=== PATIENT | female | born 1970 | race Caucasian/White ===

== ENCOUNTER → 2017-03-12 | Outpatient (CLI) | payer OTHER | LOC: FIMAGING 19:50 | PROVIDERS: ATTEND Orthopaedic Surgery Sports Medicine | DX: M50.321 Other cervical disc degeneration at C4-C5 level (principal) ==

== ENCOUNTER → 2017-05-24 | Outpatient (CLI) | payer OTHER | LOC: CIMAGING 14:45 | PROVIDERS: ATTEND Nurse Practitioner | DX: Z12.31 Encounter for screening mammogram for malignant neoplasm of breast (principal) ==

== ENCOUNTER → 2018-05-27 | Outpatient (CLI) | payer OTHER | LOC: CIMAGING 08:14 | PROVIDERS: ATTEND Nurse Practitioner | DX: Z12.31 Encounter for screening mammogram for malignant neoplasm of breast (principal) ==

== ENCOUNTER 2018-07-07 05:41 | Inpatient (IN) | payer OTHER ==
[2018-07-07] MEDS ORDERED: LR 1,000 ML IV ONE (06:04)
[2018-07-07] MEDS ORDERED: MIDAZOLAM 2 MG/2 ML VIAL IVP ONE (06:47)
--- NOTE | 2018-07-07 06:47 | PDANEPAE ---
ANE History of Present Illness JULIO CESAR--open ANE Past Medical History - Cardiovascular History Hx Hypertension: No Hx Arrhythmias: No Hx Chest Pain: No Hx Coronary Artery / Peripheral Vascular Disease: No Hx CHF / Valvular Disease: No Hx Palpitations: No - Pulmonary History Hx COPD: No Hx Asthma/Reactive Airway Disease: No Hx Recent Upper Respiratory Infection: No Hx Oxygen in Use at Home: No Hx Sleep Apnea: No Sleep Apnea Screening Result - Last Documented: Negative - Neurologic History Hx Cerebrovascular Accident: No Hx Seizures: No Hx Dementia: No - Endocrine History Hx Diabetes: No - Renal History Hx Renal Disorders: No - Liver History Hx Hepatic Disorders: No - Neurological & Psychiatric Hx Hx Neurological and Psychiatric Disorders: No Neurological / Psychiatric History Comment: ANXIETY & DEPRESSION - Cancer History Hx Cancer: No - Congenital Disorder History Hx Congenital Disorders: No - GI History Hx Gastrointestinal Disorders: Yes Gastrointestinal History Comment: GERD - Other Health History Other Health History: HX - ANEMIA - IRON INFUSIONS EVERY 9 MOS. MULTIPLE DVT YOLA IN PAST - ELIQUIS. LOW PROTEIN C & S. FACTOR V POS - Chronic Pain History Chronic Pain: No - Surgical History Prior Surgeries: APPENDECTOMY. TONSILLECTOMY. C SECTION X4. BREAST AUGMENTATION ANE Review of Systems Review of Systems: - Exercise capacity METS (RN): 5 METS ANE Patient History - Allergies Allergies/Adverse Reactions: No Known Allergies Allergy (Unverified 07/07/18 06:07) - Home Medications Home Medications: Clonazepam 06/29/18 [Last Taken 07/06/18] Eliquis 06/29/18 [Last Taken 07/05/18] Herbals/Supplements -Info Only 06/29/18 [Last Taken Unknown] Magnesium 06/29/18 [Last Taken 07/06/18] Pantoprazole Sodium 06/29/18 [Last Taken 07/06/18] - NPO status NPO Status: no food or drink >8 hours NPO Since - Liquids (Date): 07/07/18 NPO Since - Liquids (Time): 05:00 NPO Since - Solids (Date): 07/06/18 NPO Since - Solids (Time): 20:00 - Anes Hx Anes Hx: no prior problems - Smoking Hx Smoking Status: Never smoked - Alcohol Use Alcohol Use: None - Family Anes Hx Family Hx Anesthesia Complications: NEG ANE Labs/Vital Signs - Vital Signs Blood Pressure: 118/74 Heart Rate: 82 Respiratory Rate: 16 O2 Sat (%): 95 Height: 161.29 cm Weight: 54.431 kg ANE Physical Exam - Airway Neck exam: FROM Mallampati Score: Class 1 Mouth exam: normal dental/mouth exam - Pulmonary Pulmonary: no respiratory distress, clear to auscultation - Cardiovascular Cardiovascular: regular rate and rhythym, no murmur, rub, or gallop - ASA Status ASA Status: II ANE Anesthesia Plan Anesthesia Plan: general endotracheal anesthesia Regional Anesthesia: single shot NB, TAP block
[2018-07-07] MEDS ORDERED: PROPOFOL/EMULSION 500 MG/50 ML BOTTLE IV ONE (06:53)
[2018-07-07] MEDS ORDERED: PROPOFOL 200 MG/20 ML VIAL ONE ×2 (06:53→09:38)
[2018-07-07] MEDS ORDERED: fentaNYL 100 MCG/2 ML INJ ONE ×2 (06:53→10:44)
[2018-07-07] MEDS ORDERED: ROCURONIUM 100 MG/10 ML VIAL ONE (06:53)
[2018-07-07] MEDS ORDERED: LIDOCAINE 2% 100 MG/5 ML SYR ONE (06:53)
[2018-07-07] MEDS ORDERED: MIDAZOLAM 2 MG/2 ML VIAL ONE (07:06)
[2018-07-07] MEDS ORDERED: ceFAZolin 2 GM/DEXTROSE 100 ML IV ONE ×2 (07:10→15:00)
--- NOTE | 2018-07-07 07:16 | PDGENHP ---
History and Physical - Chief Complaint Menorrhagia, DUB - History of Present Illness 47 yo who I met with in clinic regading long h/o menorrhagia with Paragaurd the Eliquis tx required for h/o DVT with FVL and low Protein C/S. Sees Dr. Seran as CC re anticoag and ongoing issues w anemia. Discussed options for tx and she prefer hysterectomy with BS. EBX negative in clinic. History Information - Allergies/Home Medication List Allergies/Adverse Reactions: No Known Allergies Allergy (Unverified 07/07/18 06:07) Home Medications: Clonazepam 06/29/18 [Last Taken 07/06/18] Eliquis 06/29/18 [Last Taken 07/05/18] Herbals/Supplements -Info Only 06/29/18 [Last Taken Unknown] Magnesium 06/29/18 [Last Taken 07/06/18] Pantoprazole Sodium 06/29/18 [Last Taken 07/06/18] I have personally reviewed and updated: family history, medical history, social history, surgical history Past Medical History: Anxiety, FVL, DVT, GERD - Surgical History Additional surgical history: H/o CS x 4 - Family History Positive for: non-pertinent - Social History Smoking Status: Never smoked Alcohol Use: None Review of Systems Review of Systems: ROS: 10pt was reviewed & negative except for what was stated in HPI & below Physical Exam Physical Exam: Temp Pulse Resp BP Pulse Ox 37 C 82 16 118/74 95 07/07/18 06:14 07/07/18 06:47 07/07/18 06:47 07/07/18 06:47 07/07/18 06:47 Constitutional: no apparent distress, appears nourished, not in pain Eyes: PERRL, anicteric sclera Ears, Nose, Mouth, Throat: moist mucous membranes, hearing normal Cardiovascular: regular rate and rhythym, no murmur, rub, or gallop Respiratory: no respiratory distress Assessment & Plan Assessment: Preop: JULIO CESAR, BS, cysto for menorrhagia. On Eliquis, H/o 4 csections. - Eliquis stopped 36 hrs preop per recs from Dr. Serna. Will resume STEVAN and SCDs immediately and do 40mg Lovenox daily while inpatient and restart Eliquis on discharge. - Routine preop orders, 2g Ancef. - Likely 2-3 night stay. JM
[2018-07-07] MEDS ORDERED: ceFAZolin 1 GM VIAL ONE ×2 (07:30)
[2018-07-07] MEDS ORDERED: ONDANSETRON 4 MG/2 ML VIAL ONE (07:35)
[2018-07-07] MEDS ORDERED: DEXAMETHASONE 4 MG/ML VIAL ONE (07:35)
[2018-07-07] MEDS ORDERED: BUPIVACAINE/EPI 0.25% 30 ML SDV ONE (07:42)
[2018-07-07] MEDS ORDERED: METHYLENE BLUE 0.5% 50 MG/10 ML AMP ONE (07:43)
[2018-07-07] MEDS ORDERED: ROPIVACAINE HCL 150 MG/30 ML INJ ONE (08:15)
[2018-07-07] MEDS ORDERED: oxyCODONE IR 5 MG TAB PO PRN (10:19)
[2018-07-07] MEDS ORDERED: fentaNYL 100 MCG/2 ML INJ IVP PRN (10:19)
[2018-07-07] MEDS ORDERED: NALOXONE HCL 0.4 MG/ML INJ IVP PRN (10:19)
[2018-07-07] MEDS ORDERED: PROMETHAZINE HCL 25 MG/ML INJ IVP PRN (10:19)
[2018-07-07] MEDS ORDERED: ONDANSETRON 4 MG/2 ML VIAL IVP PRN ×2 (10:19→10:31)
[2018-07-07] MEDS ORDERED: HYDROCODONE/APAP 5/325 TAB PO PRN (10:19)
[2018-07-07] MEDS ORDERED: ACETAMINOPHEN 500 MG TAB PO PRN (10:19)
--- NOTE | 2018-07-07 10:20 | POSTANESTH ---
Post Anesthetic Evaluation Cardiovascular Status: Normal, Stable, Similar to Pre-Op Cond Respiratory Status: Similar to Pre-op Cond., Requires Airway Assist Level of Consciousness/Mental Status: Moderately Sleepy Pain Control: Adequate, Prn Tx Ordered Nausea/Vomiting Control: Adequate, Prn Tx Ordered Complications Possibly Related to Anesthesia: None Noted
[2018-07-07] MEDS ORDERED: KETOROLAC 30 MG/1 ML SDV IVP ONE (10:29)
--- NOTE | 2018-07-07 10:29 | SUROPNOTE ---
[facility] Operative Report - Surgery Date of Operation: 07/07/18 Surgeon: Kwaku Mckenzie Forgeman Helper: Caren Gordillo Anesthesiologist: Alejo Isaacs Anesthesia: GET(General Endotracheal) Pre-op Diagnosis: Menorrhagia, AUB Post-op Diagnosis: Same Procedure: JULIO CESAR, BS, cysto Findings: Nl uterus with IUD in situ, Normal bilat tubes and ovaries, dense adhesions Inf/Abcess present in the surg proc area at time of surgery?: No EBL: Minimal (25) Complications: None Bowel Protocol: No Clean Closure Performed: Yes Specimen(s): Uterus, cervix, bilateral tubes Technique: The patient was placed in supine position, general anesthesia was obtained, an exam under anesthesia was performed, a swenson catheter was placed and the patient was prepared and draped in the normal sterile fashion. A time out was Performed and weight-based antibiotics were given prior to incision. A Pfannensteil skin incision was made approximately 2 cm above the symphysis pubis and extended sharply to the rectus fascia. Bovie cautery also used during this aspect of the dissection. The fascia was then incised in the midline and extended bilaterally with the curved Parker scissors, and the muscles of the anterior abdominal wall were in the midline by sharp and blunt dissection. The peritoneum was grasped between two pick-ups, elevated and entered carefully, sharply with the Metzenbaum scissors. The pelvis was examined with the finding noted above. An Thompson-Ginny retractor was placed into the incision and the bowel packed away with moist laparotomy sponges. Two Pean clamps were placed on the cornua to aid in manipulation of the uterus. The round ligaments on both sides were clamped transected and suture ligated with #0 Vicryl. The anterior leaf of the broad ligament was incised along the bladder reflection to the midline from both sides. We did encounter substantial adhesions from the bladder to the anterior aspect of the lower uterine segment. The bladder was then gently dissected off the lower uterine segment and the cervix with a combination of sharp and blunt dissection. The infundibuloplevic ligaments on both sides were then doubly clamped, transected and suture ligated with #0 Vicryl. Hemostasis was assured. Repeated bites were then taken laterally and caudally down the uterus towards the cervix using Purnima clamps and pedicles tied with Purnima sutures of 0-vicryl. The uterine arteries were skeletonized bilaterally, clamped with Purnima clamps, transected and suture ligated with #0 Vicryl. Again, hemostasis was assured. The uterosacral ligaments were clamped on both sides, transected, and suture ligated in a similar fashion. Once we reached the cervico vaginal junction, the cervix and uterus were amputated with Melanie scissors. The vaginal cuff angles were closed with [id number] stitches of #0 Vicryl and the remainder of the vaginal cuff was closed with a series of interrupted [id number] sutures also with 0-vicryl. Hemostasis was noted before and after irrigation. The pelvis was irrigated copiously with warmed normal saline. All laparotomy sponges and instruments were removed from the abdomen. The fascia was closed with running #0 Vicryl - two sutures each starting from the corners and meeting together in the midline. The skin was closed with undyed 4-0 vloc.
[2018-07-07] MEDS ORDERED: ZOLPIDEM TARTRATE 5 MG TAB PO PRN (10:31)
[2018-07-07] MEDS ORDERED: ONDANSETRON DISINTEGRATING 4 MG TAB PO PRN (10:31)
[2018-07-07] MEDS ORDERED: HYDROmorphONE/DILAUDID 1 MG/ML INJ IVP PRN (10:40)
[2018-07-07] MEDS ORDERED: KETOROLAC 30 MG/1 ML SDV ONE (10:40)
[2018-07-07] MEDS ORDERED: HYDROmorphONE/DILAUDID 1 MG/ML INJ ONE (10:44)
[2018-07-07] MEDS ORDERED: D5W LR 1,000 ML IV SCH (10:45)
--- NOTE | 2018-07-07 10:51 | PDMN ---
Medical Necessity Medical necessity: MCG S650 hysterectomy, abdominal 2 days: OP: JULIO CESAR, BS, cystoscopy,
[2018-07-07] MEDS: HYDROmorphONE/DILAUDID 1 MG/ML INJ IVP PRN ×6 (10:54→23:12)
[2018-07-07] MEDS ORDERED: DIAZEPAM 10 MG/2 ML SYR ONE (11:05)
[2018-07-07] MEDS: DIAZEPAM 10 MG/2 ML SYR IVP PRN ×2 (11:07→11:22)
[2018-07-07] MEDS: KETOROLAC 30 MG/1 ML SDV IVP SCH ×2 (16:11→23:01)
[2018-07-07] MEDS: IBUPROFEN 600 MG TAB PO SCH ×2 (16:15→22:00)
[2018-07-07] MEDS: LIDOCAINE 4%/MENTHOL 1% PATCH TD SCH (19:16)
[2018-07-07] MEDS: PATCH REMOVAL 1 EA PATCH TD SCH (19:58)
[2018-07-07] MEDS: clonazePAM 0.5 MG TAB PO SCH (21:51)
[2018-07-07] MEDS: PANTOPRAZOLE SODIUM 40 MG TAB PO SCH (21:51)
[2018-07-08] MEDS: HYDROmorphONE/DILAUDID 1 MG/ML INJ IVP PRN ×3 (01:18→06:21)
[2018-07-08] MEDS: CYCLOBENZAPRINE 10 MG TAB PO SCH ×4 (02:37→22:38)
[2018-07-08 04:47] LABS: PLATELET COUNT 169 10^3/uL (150-400)
[2018-07-08] MEDS: KETOROLAC 30 MG/1 ML SDV IVP SCH ×2 (04:53→06:42)
[2018-07-08] MEDS: IBUPROFEN 600 MG TAB PO SCH ×3 (06:40→22:38)
[2018-07-08] MEDS: ENOXAPARIN 40 MG/0.4 ML SYR SC SCH (08:52)
[2018-07-08] MEDS: clonazePAM 0.5 MG TAB PO SCH ×2 (08:52→21:31)
[2018-07-08] MEDS: ACETAMINOPHEN 500 MG TAB PO SCH ×2 (08:53→17:26)
[2018-07-08] MEDS: PANTOPRAZOLE SODIUM 40 MG TAB PO SCH ×2 (08:53→21:30)
[2018-07-08] MEDS: oxyCODONE IR 5 MG TAB PO PRN ×4 (08:54→21:31)
[2018-07-08] MEDS: LIDOCAINE 4%/MENTHOL 1% PATCH TD SCH (10:16)
[2018-07-08] MEDS ORDERED: BISACODYL 10 MG SUPP PR PRN (21:23)
[2018-07-08] MEDS ORDERED: POLYETHYLENE GLYCOL 3350 17 GM PKT PO PRN (21:23)
[2018-07-08] MEDS ORDERED: LACTULOSE 20 GM/30 ML UDCUP PO PRN (21:23)
[2018-07-08] MEDS ORDERED: MAGNESIUM HYDROXIDE 30 ML UDCUP PO PRN (21:23)
[2018-07-08] MEDS: SENNOSIDES/DOCUSATE SODIUM TAB PO SCH (21:31)
[2018-07-08] MEDS: PATCH REMOVAL 1 EA PATCH TD SCH (22:39)
[2018-07-09] MEDS: ACETAMINOPHEN 500 MG TAB PO SCH ×4 (01:14→23:52)
[2018-07-09] MEDS: oxyCODONE IR 5 MG TAB PO PRN ×3 (01:24→06:29)
[2018-07-09] MEDS: ENOXAPARIN 40 MG/0.4 ML SYR SC SCH (08:16)
[2018-07-09] MEDS: clonazePAM 0.5 MG TAB PO SCH ×2 (09:20→21:36)
[2018-07-09] MEDS: PANTOPRAZOLE SODIUM 40 MG TAB PO SCH ×2 (09:25→21:36)
[2018-07-09] MEDS: IBUPROFEN 600 MG TAB PO SCH ×3 (09:26→21:35)
[2018-07-09] MEDS: SENNOSIDES/DOCUSATE SODIUM TAB PO SCH ×2 (09:27→21:36)
--- NOTE | 2018-07-09 11:57 | SOAPPROG ---
SOAP Progress Note Assessment/Plan: Assessment: POD1 s/p JULIO CESAR, BS, cysto - for menorrhagia on Eliquis due to h/o DVT, FVL, low protein C & S. - I don't suspect that this lower back pain is related to a surgical complication at this point. Seems musculoskeletal due to positioning during case. - Pt will get TENS unit from home, ordered PT consult, offered low dose muscle relaxant. - Expanded oral oxycodone range, still has Dilaudid available PRN. - Encourage ambulation, swenson out MICHEL once she's able to get up to bathroom. LEONEL Subjective: Anyi is having a lot of lower back pain after her procedure. Feels like a pulled muscle or "slipped disc" to her - constant, but worse with movement, sharp, midline lower back. Requiring Dilaudid PRN, Toradol. No bowel function yet, swenson still in place as she's reticent to get up and ambulate. Objective: Vital Signs Temp Pulse Resp BP Pulse Ox 36.6 C 81 16 95/56 L 95 07/09/18 06:12 07/09/18 06:12 07/09/18 06:12 07/09/18 06:12 07/09/18 06:12 Laboratory Results 07/08/18 04:25 07/08/18 07/09/18 07/10/18 05:59 05:59 05:59 Intake Total 3445 1700 Output Total 1600 2790 125 Balance 1845 -1090 -125 Physical Exam - Physical Exam General Appearance: WD/WN, alert, mild distress EENT: PERRL/EOMI Respiratory: No respiratory distress Abdomen: non-tender, soft, other (Bandage still in place) ICD10 Worksheet Patient Problems: Problems Problem Status Onset Chronic anticoagulation Acute DVT (deep venous thrombosis) Acute Menorrhagia Acute
--- NOTE | 2018-07-09 11:57 | SOAPPROG ---
SOAP Progress Note Assessment/Plan: Assessment: POD2 s/p JULIO CESAR, BS, cysto - for menorrhagia on Eliquis. Fully advanced, but no bowel function yet. Pain control has been challenging - adequately controlled on scheduled ibuprofen and Tylenol with oxy PRN breakthought. Cont bowel regimen. Lovenox 40 daily due to h/o DVT chronically anticoagulated on Eliquis. If discharges will start usual dose Eliquis tomorrow 5mg BID. Dc home today vs tomorrow. LEONEL Subjective: Doing better this AM, HOWARD bothering her. Back pain better. Tolerating diet, no BM yet. Up and around slowly. Thinking she might get more rest at home. Objective: Vital Signs Temp Pulse Resp BP Pulse Ox 36.6 C 81 16 95/56 L 95 07/09/18 06:12 07/09/18 06:12 07/09/18 06:12 07/09/18 06:12 07/09/18 06:12 Laboratory Results 07/08/18 04:25 07/08/18 07/09/18 07/10/18 05:59 05:59 05:59 Intake Total 3445 1700 Output Total 1600 2790 125 Balance 1845 -1090 -125 Physical Exam - Physical Exam General Appearance: WD/WN, alert, no apparent distress EENT: PERRL/EOMI, normal ENT inspection Respiratory: No respiratory distress Abdomen: non-tender, soft, No distended (Incision CDi with suture) Extremities: normal range of motion, non-tender, normal inspection (SCDs and STEVAN hose on) ICD10 Worksheet Patient Problems: Problems Problem Status Onset Chronic anticoagulation Acute DVT (deep venous thrombosis) Acute Menorrhagia Acute
[2018-07-09] MEDS: CYCLOBENZAPRINE 10 MG TAB PO SCH ×3 (15:17→22:45)
[2018-07-09] MEDS: LIDOCAINE 4%/MENTHOL 1% PATCH TD SCH (15:18)
[2018-07-10] MEDS: PATCH REMOVAL 1 EA PATCH TD SCH (01:09)
[2018-07-10] MEDS: IBUPROFEN 600 MG TAB PO SCH (05:27)
--- NOTE | 2018-07-10 07:02 | SOAPPROG ---
SOAP Progress Note Assessment/Plan: Assessment: POD3 s/p JULIO CESAR, BS, cysto - for menorrhagia on Eliquis due to h/o DVT, FVL, low protein C & S. - Home today, Rx's for oxy. Printed dc instructions for pain control, restrictions and precautions. - F/u w me in 2 and 6 wks. - Today received NO Lovenox, restarted on 5mg BID Eliquis per Dr. Serna's recs. JM Subjective: Feeling much better - ready for home. Had 2 BM's. Objective: Vital Signs Temp Pulse Resp BP Pulse Ox 36.9 C 80 16 104/61 96 07/10/18 05:30 07/10/18 05:30 07/10/18 05:30 07/10/18 05:30 07/10/18 05:30 Laboratory Results 07/08/18 04:25 07/09/18 07/10/18 07/11/18 05:59 05:59 05:59 Intake Total 1700 Output Total 2790 125 Balance -1090 -125 - Time Spent With Patient Time Spent With Patient: 20 - Pending Discharge Pending Discharge Within 24 Hours: Yes Pending Discharge Date: 07/11/18 Pending Discharge Time: 11:00 Physical Exam - Physical Exam Abdomen: non-tender, soft, other (Incision CDI sutures), No distended ICD10 Worksheet Patient Problems: Problems Problem Status Onset Chronic anticoagulation Acute DVT (deep venous thrombosis) Acute Menorrhagia Acute
[2018-07-10] MEDS: ACETAMINOPHEN 500 MG TAB PO SCH (09:35)
[2018-07-10] MEDS: SENNOSIDES/DOCUSATE SODIUM TAB PO SCH (09:36)
[2018-07-10] MEDS: PANTOPRAZOLE SODIUM 40 MG TAB PO SCH (09:36)
[2018-07-10] MEDS ORDERED: APIXABAN 5 MG TAB PO SCH (09:45)
[2018-07-10] MEDS: clonazePAM 0.5 MG TAB PO SCH (10:04)
[2018-07-10] MEDS: CYCLOBENZAPRINE 10 MG TAB PO SCH (11:29)
[2018-07-10] MEDS: LIDOCAINE 4%/MENTHOL 1% PATCH TD SCH (11:29)
[2018-07-10 11:30] VITALS: BP 102/66
[2018-07-10] MEDS: ENOXAPARIN 40 MG/0.4 ML SYR SC SCH (11:30)
== END 2018-07-10 11:54 | disposition home or self-care (01) | DRG 743 ==
LOC: F3E 05:41 → EDSTATUS 07:15 → FOB 12:21
PROVIDERS: ADMIT Obstetrics & Gynecology; ATTEND Obstetrics & Gynecology
DX: N92.0 Excessive and frequent menstruation with regular cycle (principal); N93.9 Abnormal uterine and vaginal bleeding, unspecified; F32.9 Major depressive disorder, single episode, unspecified; F41.9 Anxiety disorder, unspecified; K21.9 Gastro-esophageal reflux disease without esophagitis; Z79.01 Long term (current) use of anticoagulants; Z86.718 Personal history of other venous thrombosis and embolism
CPT/HCPCS: J0690; J1100; J1170; J1650; J1885; J2001; J2250; J2405; J2704; J2795; J3010; J3360; Q9968

== ENCOUNTER 2018-07-29 17:56 | Emergency (ER) | payer OTHER | END 2018-07-29 20:46 | disposition home or self-care (01) ==